=== PATIENT | male | born 1960 | race African-American/Black ===

== ENCOUNTER 2022-03-11 05:34 | Inpatient (IN) | payer OTHER ==
[2022-03-11] MEDS ORDERED: FUROSEMIDE 40 MG/4 ML INJECTABLE VIAL IVPUSH ONE ×2 (05:47→06:31)
[2022-03-11] MEDS ORDERED: NITROGLYCERIN 2% OINTMENT - 1GM PACKET TD ONE ×2 (05:49→05:51)
[2022-03-11] MEDS ORDERED: FUROSEMIDE 40 MG/4 ML INJECTABLE VIAL ONE ×2 (05:49→06:35)
[2022-03-11 06:08] LABS: BASO % 1.2 % (0-2.0); EOS % 1.5 % (0-4.5); HEMATOCRIT 32.2 % (35.4-49); HEMOGLOBIN 11.5 GM/dL (11.7-16.9); LYMPH % 15.9 % (8-40); MCH 32.2 pg (25.7-33.7); MCHC 35.7 g/dl (32.0-35.9); MEAN CELL VOLUME 90.2 fl (80-96); MEAN PLT VOLUME 10.1 fl (7.5-11.1); NEUT % 74.4 % (42.8-82.8); PLATELET COUNT 280 10^3/uL (134-434); RBC 3.56 M/mm3 (4.00-5.60); RDW 12.7 % (11.9-15.9); WHITE BLOOD COUNT 11.3 K/mm3 (4.0-10.0)
[2022-03-11 06:17] LABS: INR 0.92 (0.83-1.09); PROTHROMBIN TIME (PATIENT) 10.6 SEC (9.7-13.0)
[2022-03-11 06:20] LABS: ACTIVATED PTT 26.8 SECONDS (25.2-36.5)
[2022-03-11 06:28] LABS: CHLORIDE 113 mmol/L (98-107); SODIUM 146 mmol/L (136-145)
[2022-03-11 06:30] LABS: ALBUMIN 3.4 g/dl (3.4-5.0); ANION GAP 7 MMOL/L (8-16); BLOOD UREA NITROGEN 48.4 mg/dL (7-18); CALCIUM 8.4 mg/dL (8.5-10.1); CO2 26 mmol/L (21-32); GLUCOSE,RANDOM 98 mg/dL (74-106)
[2022-03-11] MEDS ORDERED: methylPREDNISolone NA SUCC 125 MG/2 ML VIAL IVPB ONE (06:31)
[2022-03-11] MEDS ORDERED: morphine CARPU-JECT 4 MG/1 ML DISP.SYRIN IVPUSH ONE (06:32)
[2022-03-11 06:33] LABS: CREATININE 3.2 mg/dL (0.55-1.3); SGOT/AST 32 U/L (15-37); SGPT/ALT 16 U/L (13-61)
[2022-03-11 06:35] LABS: BILIRUBIN,TOTAL 0.4 mg/dL (0.2-1); TOT PROT 6.5 g/dl (6.4-8.2)
[2022-03-11] MEDS ORDERED: methylPREDNISolone NA SUCC 125 MG/2 ML VIAL ONE (06:35)
[2022-03-11 06:36] LABS: ALK PHOS 71 U/L (45-117)
[2022-03-11 06:45] LABS: VENOUS BASE EXCESS -1.1 mmol/L (-2-2); VENOUS O2 SATURATION 33.6 % (70-80); VENOUS PCO2 50.3 mmHg (38-52); VENOUS PH 7.324 (7.310-7.410)
[2022-03-11] MEDS ORDERED: HEPARIN NA (PORCINE) 5,000 UNITS/ML 1ML VIAL IVPUSH PRN (06:48)
[2022-03-11] MEDS ORDERED: HEPARIN NA (PORCINE) 5,000 UNITS/ML 1ML VIAL IVPUSH ONE (06:48)
[2022-03-11] MEDS ORDERED: HEPARIN INFUSION - 25,000 UNITS/500 ML INFUS.BAG IVPB ONE (07:39)
[2022-03-11] MEDS ORDERED: HEPARIN NA (PORCINE) 5,000 UNITS/ML 1ML VIAL ONE (07:40)
[2022-03-11] MEDS: HEPARIN INFUSION - 25,000 UNITS/500 ML INFUS.BAG IVPB SCH ×3 (07:54→19:08)
[2022-03-11] MEDS ORDERED: NITROGLYCERIN 25MG/D5W 250ML 25 MG/250 ML ML IVPB SCH (08:00)
[2022-03-11 09:20] LABS: ALLENS TEST POSITIVE; ARTERIAL BLD GAS O2 SATURATION 95.7 % (95-98); ARTERIAL BLOOD GAS BASE EXCESS -2.8 mmol/L (-2-2); ARTERIAL BLOOD GAS PO2 82.9 mmHg (80-100)
[2022-03-11 09:21] LABS: VENT MODE SIT; VENT RATE 14
[2022-03-11] MEDS ORDERED: NIFEdipine 10 MG CAPSULE (FP) PO SCH (12:22)
[2022-03-11] MEDS: NIFEdipine E.R. 30 MG TABLET PO SCH (13:48)
[2022-03-11] MEDS ORDERED: hydrALAZINE HCL 20 MG/ML VIAL IVPUSH ONE (14:20)
[2022-03-11] MEDS ORDERED: LABETALOL HCL 5 MG/1 ML (100MG/20 ML VIAL) IVPUSH ONE (14:20)
[2022-03-11 15:00] LABS: PH,URINE 6.5 (5.0-8.0); URINE APPEARANCE CLEAR; URINE BILIRUBIN NEGATIVE (NEGATIVE); URINE COLOR YELLOW; URINE GLUCOSE (UA) NEGATIVE (NEGATIVE); URINE KETONE NEGATIVE (NEGATIVE); URINE LEUK ESTERASE NEGATIVE (NEGATIVE); URINE NITRITE NEGATIVE (NEGATIVE); URINE PROTEIN NEGATIVE (NEGATIVE); URINE UROBILINOGEN 0.2 mg/dL (0.2-1.0)
[2022-03-11 16:24] VITALS: BMI 22.1
[2022-03-11] MEDS ORDERED: LABETALOL HCL 100 MG TABLET (FP) ONE (21:56)
[2022-03-11] MEDS ORDERED: hydrALAZINE HCL 10 MG TABLET ONE (21:56)
[2022-03-11] MEDS ORDERED: LABETALOL HCL 200 MG TABLET (FP) PO SCH (22:00)
[2022-03-11] MEDS: hydrALAZINE HCL 10 MG TABLET PO SCH (22:09)
[2022-03-11] MEDS: LABETALOL HCL 200 MG TABLET (FP) PO SCH (22:09)
[2022-03-12] MEDS ORDERED: HEPARIN INFUSION - 25,000 UNITS/500 ML INFUS.BAG IVPB ONE (04:00)
[2022-03-12] MEDS ORDERED: LABETALOL HCL 100 MG TABLET (FP) ONE (06:25)
[2022-03-12] MEDS ORDERED: hydrALAZINE HCL 10 MG TABLET ONE (06:25)
[2022-03-12] MEDS: LABETALOL HCL 200 MG TABLET (FP) PO SCH ×3 (06:31→21:43)
[2022-03-12] MEDS: hydrALAZINE HCL 10 MG TABLET PO SCH ×3 (06:31→21:43)
[2022-03-12 08:40] LABS: ALBUMIN 3.3 g/dl (3.4-5.0); BLOOD UREA NITROGEN 56.8 mg/dL (7-18); CALCIUM 8.5 mg/dL (8.5-10.1); MAGNESIUM 2.2 mg/dL (1.8-2.4)
[2022-03-12 08:43] LABS: PHOSPHOROUS 4.2 mg/dL (2.5-4.9)
[2022-03-12 08:44] LABS: IRON SERUM 111 ug/dL (50-175)
[2022-03-12 08:45] LABS: BILIRUBIN,TOTAL 0.6 mg/dL (0.2-1); TOT PROT 6.4 g/dl (6.4-8.2)
[2022-03-12 08:46] LABS: TOTAL IRON BINDING CAPACITY 240 ug/dL (250-450)
[2022-03-12] MEDS: NIFEdipine E.R. 30 MG TABLET PO SCH (09:05)
[2022-03-12] MEDS: HEPARIN INFUSION - 25,000 UNITS/500 ML INFUS.BAG IVPB SCH (11:14)
[2022-03-12] MEDS ORDERED: LIDOCAINE HCL 2% JELLY 10 ML CARTRIDGE UR ONE (15:00)
[2022-03-12] MEDS ORDERED: guaiFENesin 200 MG/10 ML 10 ML UNIT-DOSE CUPS PO ONE (23:51)
[2022-03-13] MEDS: hydrALAZINE HCL 10 MG TABLET PO SCH ×3 (06:32→21:25)
[2022-03-13] MEDS: HEPARIN INFUSION - 25,000 UNITS/500 ML INFUS.BAG IVPB SCH ×2 (06:33→17:39)
[2022-03-13 07:04] LABS: BASO % 2.3 % (0-2.0); EOS % 0.6 % (0-4.5); HEMOGLOBIN 10.3 GM/dL (11.7-16.9); LYMPH % 20.3 % (8-40); MCH 32.1 pg (25.7-33.7); MCHC 35.3 g/dl (32.0-35.9); MEAN CELL VOLUME 90.9 fl (80-96); MONO % 7.7 % (3.8-10.2); NEUT % 69.1 % (42.8-82.8); PLATELET COUNT 248 10^3/uL (134-434); RBC 3.19 M/mm3 (4.00-5.60); RDW 12.7 % (11.9-15.9); WHITE BLOOD COUNT 9.3 K/mm3 (4.0-10.0)
[2022-03-13 07:36] LABS: CALCIUM 8.2 mg/dL (8.5-10.1)
[2022-03-13 07:37] LABS: BLOOD UREA NITROGEN 55.7 mg/dL (7-18)
[2022-03-13] MEDS: LABETALOL HCL 200 MG TABLET (FP) PO SCH ×2 (09:58→21:25)
[2022-03-13] MEDS: NIFEdipine E.R. 30 MG TABLET PO SCH (09:59)
[2022-03-13] MEDS ORDERED: TAMSULOSIN HCL 0.4 MG CAP PO SCH (12:02)
[2022-03-13] MEDS: TAMSULOSIN HCL 0.4 MG CAP PO SCH (21:25)
[2022-03-14] MEDS: hydrALAZINE HCL 10 MG TABLET PO SCH ×3 (05:35→21:02)
[2022-03-14 07:47] LABS: BASO % 0.7 % (0-2.0); EOS % 0.4 % (0-4.5); HEMATOCRIT 31.3 % (35.4-49); HEMOGLOBIN 10.8 GM/dL (11.7-16.9); MCH 31.6 pg (25.7-33.7); MCHC 34.6 g/dl (32.0-35.9); MEAN CELL VOLUME 91.3 fl (80-96); MEAN PLT VOLUME 10.7 fl (7.5-11.1); MONO % 7.9 % (3.8-10.2); PLATELET COUNT 269 10^3/uL (134-434); RBC 3.43 M/mm3 (4.00-5.60); RDW 12.6 % (11.9-15.9); WHITE BLOOD COUNT 13.8 K/mm3 (4.0-10.0)
[2022-03-14 08:15] LABS: BLOOD UREA NITROGEN 50.5 mg/dL (7-18); CALCIUM 8.3 mg/dL (8.5-10.1)
[2022-03-14 08:19] LABS: CREATININE 2.9 mg/dL (0.55-1.3)
[2022-03-14] MEDS: HEPARIN NA (PORCINE) 5,000 UNITS/ML 1ML VIAL IVPUSH PRN (08:43)
[2022-03-14] MEDS: HEPARIN INFUSION - 25,000 UNITS/500 ML INFUS.BAG IVPB SCH ×3 (08:46→22:00)
[2022-03-14] MEDS: FINASTERIDE 5 MG TABLET (FP) PO SCH (09:41)
[2022-03-14] MEDS: LABETALOL HCL 200 MG TABLET (FP) PO SCH ×2 (09:41→21:03)
[2022-03-14] MEDS: TAMSULOSIN HCL 0.4 MG CAP PO SCH ×2 (09:41→21:02)
[2022-03-14] MEDS: NIFEdipine E.R. 30 MG TABLET PO SCH (09:42)
[2022-03-14] MEDS: SODIUM CHLORIDE 0.45% 1,000 ML IV SCH (14:34)
[2022-03-15] MEDS: hydrALAZINE HCL 10 MG TABLET PO SCH ×3 (05:52→21:16)
[2022-03-15 07:48] LABS: BASO % 0.6 % (0-2.0); EOS % 1.2 % (0-4.5); HEMATOCRIT 29.4 % (35.4-49); HEMOGLOBIN 10.2 GM/dL (11.7-16.9); MCH 31.7 pg (25.7-33.7); MCHC 34.8 g/dl (32.0-35.9); MEAN PLT VOLUME 10.5 fl (7.5-11.1); NEUT % 73.2 % (42.8-82.8); PLATELET COUNT 255 10^3/uL (134-434); RBC 3.23 M/mm3 (4.00-5.60); RDW 12.5 % (11.9-15.9); WHITE BLOOD COUNT 12.2 K/mm3 (4.0-10.0)
[2022-03-15 08:09] LABS: ALBUMIN 2.7 g/dl (3.4-5.0); BLOOD UREA NITROGEN 40.5 mg/dL (7-18)
[2022-03-15 08:12] LABS: CREATININE 2.5 mg/dL (0.55-1.3); PHOSPHOROUS 4.2 mg/dL (2.5-4.9)
[2022-03-15 08:13] LABS: BILIRUBIN,TOTAL 0.6 mg/dL (0.2-1)
[2022-03-15 08:14] LABS: TOT PROT 5.4 g/dl (6.4-8.2)
[2022-03-15] MEDS: HEPARIN INFUSION - 25,000 UNITS/500 ML INFUS.BAG IVPB SCH (09:45)
[2022-03-15] MEDS: NIFEdipine E.R. 30 MG TABLET PO SCH (09:46)
[2022-03-15] MEDS: TAMSULOSIN HCL 0.4 MG CAP PO SCH ×2 (09:46→21:16)
[2022-03-15] MEDS: FINASTERIDE 5 MG TABLET (FP) PO SCH (09:46)
[2022-03-15] MEDS: LABETALOL HCL 200 MG TABLET (FP) PO SCH ×2 (09:46→21:16)
[2022-03-15] MEDS: SODIUM CHLORIDE 0.45% 1,000 ML IV SCH (17:17)
[2022-03-16] MEDS: hydrALAZINE HCL 10 MG TABLET PO SCH ×3 (06:24→21:54)
[2022-03-16 08:11] LABS: BASO % 0.7 % (0-2.0); EOS % 2.4 % (0-4.5); HEMATOCRIT 29.6 % (35.4-49); HEMOGLOBIN 10.3 GM/dL (11.7-16.9); MCH 31.9 pg (25.7-33.7); MCHC 34.8 g/dl (32.0-35.9); MEAN CELL VOLUME 91.7 fl (80-96); MEAN PLT VOLUME 10.8 fl (7.5-11.1); MONO % 9.7 % (3.8-10.2); NEUT % 69.2 % (42.8-82.8); PLATELET COUNT 253 10^3/uL (134-434); RBC 3.23 M/mm3 (4.00-5.60); RDW 12.8 % (11.9-15.9); WHITE BLOOD COUNT 11.6 K/mm3 (4.0-10.0)
[2022-03-16 08:30] LABS: CALCIUM 7.8 mg/dL (8.5-10.1)
[2022-03-16 08:31] LABS: ALBUMIN 2.8 g/dl (3.4-5.0); BLOOD UREA NITROGEN 35.8 mg/dL (7-18)
[2022-03-16 08:34] LABS: CREATININE 2.4 mg/dL (0.55-1.3)
[2022-03-16 08:35] LABS: BILIRUBIN,TOTAL 0.6 mg/dL (0.2-1); TOT PROT 5.7 g/dl (6.4-8.2)
[2022-03-16 08:39] LABS: N-TERMINAL BNP 1574.1 pg/ml (5-125)
[2022-03-16] MEDS: HEPARIN INFUSION - 25,000 UNITS/500 ML INFUS.BAG IVPB SCH ×2 (09:00→17:30)
[2022-03-16] MEDS: LABETALOL HCL 200 MG TABLET (FP) PO SCH ×2 (10:32→21:54)
[2022-03-16] MEDS: NIFEdipine E.R. 30 MG TABLET PO SCH (10:32)
[2022-03-16] MEDS: TAMSULOSIN HCL 0.4 MG CAP PO SCH ×2 (10:32→21:54)
[2022-03-16] MEDS: FINASTERIDE 5 MG TABLET (FP) PO SCH (10:32)
[2022-03-16] MEDS: HEPARIN NA (PORCINE) 5,000 UNITS/ML 1ML VIAL IVPUSH PRN ×2 (10:33→18:52)
[2022-03-17] MEDS: hydrALAZINE HCL 10 MG TABLET PO SCH ×3 (06:18→21:22)
[2022-03-17 08:10] LABS: BASO % 0.8 % (0-2.0); EOS % 1.9 % (0-4.5); HEMATOCRIT 29.8 % (35.4-49); HEMOGLOBIN 10.4 GM/dL (11.7-16.9); MCH 31.8 pg (25.7-33.7); MEAN CELL VOLUME 90.9 fl (80-96); MEAN PLT VOLUME 10.4 fl (7.5-11.1); MONO % 9.4 % (3.8-10.2); NEUT % 69.9 % (42.8-82.8); PLATELET COUNT 268 10^3/uL (134-434); RBC 3.28 M/mm3 (4.00-5.60); RDW 12.6 % (11.9-15.9); WHITE BLOOD COUNT 12.8 K/mm3 (4.0-10.0)
[2022-03-17 08:22] LABS: CALCIUM 8.2 mg/dL (8.5-10.1)
[2022-03-17 08:23] LABS: BLOOD UREA NITROGEN 37.7 mg/dL (7-18)
[2022-03-17 08:26] LABS: CREATININE 2.2 mg/dL (0.55-1.3); PHOSPHOROUS 3.9 mg/dL (2.5-4.9)
[2022-03-17] MEDS: NIFEdipine E.R. 30 MG TABLET PO SCH (09:45)
[2022-03-17] MEDS: HEPARIN INFUSION - 25,000 UNITS/500 ML INFUS.BAG IVPB SCH (09:45)
[2022-03-17] MEDS: LABETALOL HCL 200 MG TABLET (FP) PO SCH ×2 (09:45→21:22)
[2022-03-17] MEDS: FINASTERIDE 5 MG TABLET (FP) PO SCH (09:45)
[2022-03-17] MEDS: TAMSULOSIN HCL 0.4 MG CAP PO SCH ×2 (09:45→21:22)
[2022-03-18] MEDS: hydrALAZINE HCL 10 MG TABLET PO SCH ×2 (05:37→14:07)
[2022-03-18 07:14] LABS: CALCIUM 8.4 mg/dL (8.5-10.1)
[2022-03-18 07:15] LABS: BLOOD UREA NITROGEN 30.5 mg/dL (7-18)
[2022-03-18] MEDS: HEPARIN INFUSION - 25,000 UNITS/500 ML INFUS.BAG IVPB SCH ×2 (07:17→16:39)
[2022-03-18 07:18] LABS: CREATININE 2.2 mg/dL (0.55-1.3)
[2022-03-18] MEDS: TAMSULOSIN HCL 0.4 MG CAP PO SCH ×2 (09:25→21:20)
[2022-03-18] MEDS: FINASTERIDE 5 MG TABLET (FP) PO SCH (09:25)
[2022-03-18] MEDS: NIFEdipine E.R. 30 MG TABLET PO SCH (09:25)
[2022-03-18] MEDS: LABETALOL HCL 200 MG TABLET (FP) PO SCH ×2 (09:25→21:21)
[2022-03-18 12:46] LABS: EPI CELLS 6 /uL (0-25.1); HYALINE CASTS 1 /uL (0-3.1); URINE APPEARANCE CLEAR; URINE BACTERIA 3 /uL (0-1359); URINE BILIRUBIN NEGATIVE (NEGATIVE); URINE COLOR ORANGE; URINE GLUCOSE (UA) NEGATIVE (NEGATIVE); URINE KETONE NEGATIVE (NEGATIVE); URINE LEUK ESTERASE 1+ (NEGATIVE); URINE NITRITE NEGATIVE (NEGATIVE); URINE PROTEIN 1+ (NEGATIVE); URINE RBC 2115 /uL (0-23.9); URINE UROBILINOGEN 0.2 mg/dL (0.2-1.0); URINE WBC 15 /uL (0-25.8)
[2022-03-19] MEDS: HEPARIN INFUSION - 25,000 UNITS/500 ML INFUS.BAG IVPB SCH ×2 (06:46→09:19)
[2022-03-19 08:19] LABS: BASO % 1.2 % (0-2.0); EOS % 1.5 % (0-4.5); HEMATOCRIT 30.7 % (35.4-49); HEMOGLOBIN 10.6 GM/dL (11.7-16.9); LYMPH % 16.7 % (8-40); MCH 31.8 pg (25.7-33.7); MCHC 34.5 g/dl (32.0-35.9); MEAN CELL VOLUME 92.1 fl (80-96); MEAN PLT VOLUME 10.4 fl (7.5-11.1); NEUT % 68.6 % (42.8-82.8); PLATELET COUNT 312 10^3/uL (134-434); RBC 3.33 M/mm3 (4.00-5.60); RDW 12.6 % (11.9-15.9); WHITE BLOOD COUNT 13.8 K/mm3 (4.0-10.0)
[2022-03-19 08:40] LABS: BLOOD UREA NITROGEN 34.4 mg/dL (7-18)
[2022-03-19 08:42] LABS: CALCIUM 8.9 mg/dL (8.5-10.1); MAGNESIUM 2.1 mg/dL (1.8-2.4)
[2022-03-19 08:43] LABS: CREATININE 2.2 mg/dL (0.55-1.3); PHOSPHOROUS 4.2 mg/dL (2.5-4.9)
[2022-03-19] MEDS: TAMSULOSIN HCL 0.4 MG CAP PO SCH ×2 (09:20→22:01)
[2022-03-19] MEDS: LABETALOL HCL 200 MG TABLET (FP) PO SCH ×2 (09:20→21:53)
[2022-03-19] MEDS: FINASTERIDE 5 MG TABLET (FP) PO SCH (09:21)
[2022-03-19] MEDS: NIFEdipine E.R 60 MG TABLET PO SCH (09:59)
[2022-03-19] MEDS: HEPARIN NA (PORCINE) 5,000 UNITS/ML 1ML VIAL SQ SCH (21:53)
[2022-03-20] MEDS: HEPARIN NA (PORCINE) 5,000 UNITS/ML 1ML VIAL SQ SCH ×3 (05:51→21:05)
[2022-03-20 07:30] LABS: BASO % 0.7 % (0-2.0); EOS % 1.5 % (0-4.5); HEMOGLOBIN 10.1 GM/dL (11.7-16.9); LYMPH % 20.9 % (8-40); MCH 31.7 pg (25.7-33.7); MCHC 34.7 g/dl (32.0-35.9); MEAN CELL VOLUME 91.4 fl (80-96); MEAN PLT VOLUME 10.1 fl (7.5-11.1); MONO % 12.6 % (3.8-10.2); NEUT % 64.3 % (42.8-82.8); PLATELET COUNT 317 10^3/uL (134-434); RBC 3.17 M/mm3 (4.00-5.60); RDW 12.9 % (11.9-15.9); WHITE BLOOD COUNT 11.7 K/mm3 (4.0-10.0)
[2022-03-20 08:13] LABS: BLOOD UREA NITROGEN 36.3 mg/dL (7-18)
[2022-03-20 08:14] LABS: CALCIUM 8.6 mg/dL (8.5-10.1); MAGNESIUM 2.1 mg/dL (1.8-2.4)
[2022-03-20 08:16] LABS: CREATININE 2.2 mg/dL (0.55-1.3); PHOSPHOROUS 3.8 mg/dL (2.5-4.9)
[2022-03-20] MEDS: TAMSULOSIN HCL 0.4 MG CAP PO SCH ×2 (09:02→21:05)
[2022-03-20] MEDS: NIFEdipine E.R 60 MG TABLET PO SCH (09:02)
[2022-03-20] MEDS: FINASTERIDE 5 MG TABLET (FP) PO SCH (09:02)
[2022-03-20] MEDS: LABETALOL HCL 200 MG TABLET (FP) PO SCH ×2 (09:02→21:05)
[2022-03-21 08:42] LABS: HEMATOCRIT 28.7 % (35.4-49); HEMOGLOBIN 10.1 GM/dL (11.7-16.9); MCH 32.4 pg (25.7-33.7); MCHC 35.1 g/dl (32.0-35.9); MEAN CELL VOLUME 92.2 fl (80-96); MEAN PLT VOLUME 10.3 fl (7.5-11.1); PLATELET COUNT 324 10^3/uL (134-434); RBC 3.11 M/mm3 (4.00-5.60); RDW 12.8 % (11.9-15.9); WHITE BLOOD COUNT 11.3 K/mm3 (4.0-10.0)
[2022-03-21 09:06] LABS: CALCIUM 8.8 mg/dL (8.5-10.1)
[2022-03-21 09:07] LABS: BLOOD UREA NITROGEN 37.4 mg/dL (7-18)
[2022-03-21 09:08] LABS: MAGNESIUM 2.2 mg/dL (1.8-2.4)
[2022-03-21 09:11] LABS: BILIRUBIN,TOTAL 0.5 mg/dL (0.2-1); TOT PROT 6.4 g/dl (6.4-8.2)
[2022-03-21 09:38] LABS: ANISOCYTOSIS 1+; MACROCYTOSIS 1+
[2022-03-21] MEDS: LABETALOL HCL 200 MG TABLET (FP) PO SCH (09:38)
[2022-03-21] MEDS: TAMSULOSIN HCL 0.4 MG CAP PO SCH (09:38)
[2022-03-21] MEDS: FINASTERIDE 5 MG TABLET (FP) PO SCH (09:38)
[2022-03-21] MEDS: NIFEdipine E.R 60 MG TABLET PO SCH (09:38)
[2022-03-21 14:55] VITALS: BP 124/65; PULSE 75; TEMP 97.5
== END 2022-03-21 18:13 | disposition home or self-care (01) | DRG 469 ==
LOC: JER 05:34 → JERBED 07:19 → J4W 03-12 07:21
PROVIDERS: ADMIT Internal Medicine; ATTEND Internal Medicine
PROC: 0T7D7ZZ Dilation of Urethra, Via Natural or Artificial Opening (ICD-10-PCS; principal; 2022-03-14)
DX: N17.9 Acute kidney failure, unspecified (principal); E87.0 Hyperosmolality and hypernatremia; I24.8 Other forms of acute ischemic heart disease; I50.43 Acute on chronic combined systolic (congestive) and diastolic (congestive) heart failure; I13.2 Hypertensive heart and chronic kidney disease with heart failure and with stage 5 chronic kidney disease, or end stage renal disease; E78.5 Hyperlipidemia, unspecified; I16.1 Hypertensive emergency; J98.11 Atelectasis; N13.9 Obstructive and reflux uropathy, unspecified; N18.9 Chronic kidney disease, unspecified; N40.0 Benign prostatic hyperplasia without lower urinary tract symptoms; R31.9 Hematuria, unspecified; R33.9 Retention of urine, unspecified; N13.30 Unspecified hydronephrosis; D72.829 Elevated white blood cell count, unspecified
CPT/HCPCS: 0241U-QW; 36415; 36600; 71045-TC-FY; 71250-TC; 74176-TC; 76775-TC; 76856-TC; 78582-TC; 80048; 80053; 81003; 82570; 82803; 83540; 83550; 83735; 83880; 84100; 84153; 84156; 84300; 84484; 85025; 85045; 85379; 85610; 85730; 86850; 86900; 86901; 87040; 87086; 93005; 93010; 93306-TC; 93970-TC; 94660; 99291; A9539; A9540; J1644